=== PATIENT | female | born 1995 | race Caucasian/White ===

== ENCOUNTER 2017-03-27 19:34 | Emergency (ER) | payer BC ==
[2017-03-27] MEDS ORDERED: HYDROmorphone 1 MG/ML Syringe IVPUSH ONE ×2 (19:59→22:38)
[2017-03-27] MEDS ORDERED: Ondansetron 4 MG/2 ML SDV IVPUSH ONE (19:59)
[2017-03-27] MEDS ORDERED: Sodium Chloride 0.9% 10 ML Syringe FLUSH PRN (19:59)
[2017-03-27] MEDS ORDERED: Sodium Chloride 0.9% 500 ML IV ONE (19:59)
--- NOTE | 2017-03-27 20:13 | EDM.PDOC ---
ED HPI GENERAL MEDICAL PROBLEM - General Chief Complaint: Genitourinary Problem Stated Complaint: BACK PAIN Time Seen by Provider: 03/27/17 19:49 Source of Information: Reports: Patient, RN Notes Reviewed - History of Present Illness INITIAL COMMENTS - FREE TEXT/NARRATIVE: 22-year-old female comes in with right back discomfort. She's had some difficulty with intermittent hematuria for the past 10-12 days. She was started on antibiotics for UTI about 10 days ago but then told to stop antibiotics because there was not a true infection. She then did start having right back discomfort more severe about 2 days ago she was seen at [facility] today, had a renal CT type study this afternoon but has not heard any results. The pain is worse this evening still primarily right low back with some radiation to the right flank but not to the right abdomen. She has no current voiding symptomatology. No fever chills. However she has had some nausea vomiting this evening. Right Flank Pain Score (Numeric/FACES): 10 - Related Data Allergies Allergy/AdvReac Type Severity Reaction Status Date / Time No Known Allergies Allergy Verified 03/27/17 19:42 Home Meds: Home Meds Acetaminophen/HYDROcodone [Ferris 325-5 MG] 1 tab PO Q6H PRN #20 tablet 03/27/17 [Rx] Ondansetron [Zofran ODT] 4 mg PO Q6H PRN #10 tab.dis 03/27/17 [Rx] Sertraline HCl [Sertraline HCl] 100 mg PO DAILY 03/27/17 [History] Tramadol. 1 tab PO Q6H PRN 03/27/17 [History] Past Medical History Genitourinary History: Reports: Renal Calculus Social & Family History - Tobacco Use Smoking Status *Q: Never Smoker - Recreational Drug Use Recreational Drug Use: No ED ROS GENERAL - Review of Systems Review Of Systems: See Below Constitutional: Denies: Fever, Chills HEENT: Reports: No Symptoms Respiratory: Denies: Shortness of Breath, Pleuritic Chest Pain Cardiovascular: Denies: Chest Pain GI/Abdominal: Reports: Nausea, Vomiting. Denies: Abdominal Pain, Diarrhea Musculoskeletal: Reports: Back Pain (Right low back) Skin: Reports: No Symptoms Neurological: Reports: No Symptoms ED EXAM, RENAL/ - Physical Exam Exam: See Below General Appearance: Alert, Moderate Distress Throat/Mouth: Normal Inspection Head: No: Facial Swelling Neck: Supple Respiratory/Chest: No Respiratory Distress, Lungs Clear, Normal Breath Sounds Cardiovascular: Regular Rate, Rhythm GI/Abdominal: Soft, Non-Tender. No: Guarding Back Exam: CVA Tenderness (R), Other (Tender right low back). No: Vertebral Tenderness Extremities: Normal Inspection, Normal Range of Motion Neurological: Alert, Oriented, No Motor/Sensory Deficits Skin Exam: Warm, Dry, Normal Color Course - Vital Signs Last Recorded V/S: Last Vital Signs Temp 97.3 F 03/27/17 19:43 Pulse 86 03/27/17 19:43 Resp BP 139/99 H 03/27/17 19:43 Pulse Ox 99 03/27/17 19:43 - Orders/Labs/Meds Orders: Active Orders 24 hr Category Date Time Status Peripheral IV Care [RC] . DIRECTED Care 03/27/17 20:00 Active Sodium Chloride 0.9% [Saline Flush] Med 03/27/17 19:59 Active 10 ml FLUSH ASDIRECTED PRN Peripheral IV Insertion Adult [OM.PC] Stat Oth 03/27/17 19:59 Ordered Medication Orders Sodium Chloride (Saline Flush) 10 ml FLUSH ASDIRECTED PRN PRN Reason: Keep Vein Open Last Admin: 03/27/17 20:15 Dose: 10 ml Labs: Laboratory Tests 03/27/17 03/27/17 03/27/17 Range/Units 20:20 20:20 21:48 WBC 10.37 H (3.98-10.04) K/mm3 RBC 4.94 (3.98-5.22) M/mm3 Hgb 14.3 (11.2-15.7) gm/L Hct 40.9 (34.1-44.9) % MCV 82.8 (79.4-94.8) fl MCH 28.9 (25.6-32.2) pg MCHC 35.0 (32.2-35.5) g/dl RDW Std Deviation 39.7 (36.4-46.3) fL Plt Count 374 H (182-369) K/mm3 MPV 9.7 (9.4-12.3) fl Neut % (Auto) 61.2 (34.0-71.1) % Lymph % (Auto) 30.1 (19.3-51.7) % [place] % (Auto) 6.6 (4.7-12.5) % Eos % (Auto) 1.6 (0.7-5.8) Baso % (Auto) 0.4 (0.1-1.2) % Neut # (Auto) 6.35 H (1.56-6.13) K/mm3 Lymph # (Auto) 3.12 (1.18-3.74) K/mm3 [place] # (Auto) 0.68 H (0.24-0.36) K/mm3 Eos # (Auto) 0.17 (0.04-0.36) K/mm3 Baso # (Auto) 0.04 (0.01-0.08) K/mm3 Sodium 140 (136-145) mEq/L Potassium 3.7 (3.5-5.1) mEq/L Chloride 103 (98-107) mEq/L Carbon Dioxide 26 (21-32) mEq/L Anion Gap 14.7 (5-15) BUN 15 (7-18) mg/dL Creatinine 0.8 (0.55-1.02) mg/dL Est Cr Clr Drug Dosing 101.51 mL/min Estimated GFR (MDRD) > 60 (>60) mL/min BUN/Creatinine Ratio 18.8 H (14-18) Glucose 98 (74-106) mg/dL Calcium 9.3 (8.5-10.1) mg/dL Total Bilirubin 0.2 (0.2-1.0) mg/dL AST 23 (15-37) U/L ALT 33 (14-59) U/L Alkaline Phosphatase 76 (46-116) U/L Total Protein 7.9 (6.4-8.2) g/dl Albumin 4.0 (3.4-5.0) g/dl Globulin 3.9 gm/dL Albumin/Globulin Ratio 1.0 (1-2) Urine Color [place] H (Yellow) Urine Appearance Cloudy H (Clear) Urine pH 6.0 (5.0-8.0) Ur Specific [place] 1.025 (1.005-1.030) Urine Protein 2+ H (Negative) Urine Glucose (UA) Negative (Negative) Urine Ketones Negative (Negative) Urine Occult Blood 3+ H (Negative) Urine Nitrite Negative (Negative) Urine Bilirubin Negative (Negative) Urine Urobilinogen 0.2 (0.2-1.0) Ur Leukocyte Esterase Negative (Negative) Urine RBC >100 H (0-5) /hpf Urine WBC 0-5 (0-5) /hpf Ur Epithelial Cells 0-5 (0-5) /hpf Urine Bacteria Not seen (FEW) /hpf Urine Mucus Not seen (FEW) /hpf Meds: Medications Generic Name Dose Route Start Last Admin Trade Name Freq PRN Reason Stop Dose Admin Sodium Chloride 10 ml 03/27/17 19:59 03/27/17 20:15 Saline Flush FLUSH 10 ml ASDIRECTED PRN Administration Keep Vein Open Discontinued Medications Generic Name Dose Route Start Last Admin Trade Name Freq PRN Reason Stop Dose Admin Hydromorphone HCl 1 mg 03/27/17 19:59 03/27/17 20:16 Dilaudid IVPUSH 03/27/17 20:00 1 mg ONETIME ONE Administration Sodium Chloride 500 mls @ 999 mls/hr 03/27/17 19:59 03/27/17 20:14 Normal Saline IV 03/27/17 20:29 999 mls/hr .BOLUS ONE Administration Ondansetron HCl 4 mg 03/27/17 19:59 03/27/17 20:14 Zofran IVPUSH 03/27/17 20:00 4 mg ONETIME ONE Administration - Re-Assessments/Exams Free Text/Narrative Re-Assessment/Exam: 03/27/17 21:00. We were able to get records from [place]. Radiology report of the CT done this past afternoon does show that there was a 6 mm stone at the right UPJ with mild right-sided hydronephrosis. Report for details. This information has been shared with patient. She is feeling much better after Dilaudid 1 mg IV and Zofran 4 mg IV. Pain is down to about a 3 or 4. White blood count and chemistries are okay, she has not been able to void for us. I think we should get another look at her urine prior to discharge. I'm going to ask that she call clinic in the morning and have her provider and her nurse arrange for urology referral. She'll likely need to have this plucked out at 6 mm size. 03/27/17 22:34. UA shows hematuria, no evidence for infection. Discharge instructions as documented Departure - Departure Time of Disposition: 21:45 Disposition: Home, Self-Care 01 Condition: Fair Clinical Impression: Kidney stone on right side - Discharge Information Prescriptions: Acetaminophen/HYDROcodone [Ferris 325-5 MG] 1 tab PO Q6H PRN #20 tablet PRN Reason: Pain Ondansetron [Zofran ODT] 4 mg PO Q6H PRN #10 tab.dis PRN Reason: Nausea/Vomiting Referrals: PCP,None [Ordering Only Provider] - Forms: ED Department Discharge Additional Instructions: Tylenol for mild to moderate discomfort or hydrocodone if needed for more severe pain. You may alternate that with the tramadol previously prescribed. Zofran ODT if needed for further nausea or vomiting. Call [facility] in the morning, asked to speak to Anh Griffith's nurse and ask to have them help you get a referral to a Urologist as soon as possible this week, preferably in the next day or 2. Return to ED if symptoms worsening in any way. - My Orders Last 24 Hours: My Active Orders 03/27/17 19:59 Sodium Chloride 0.9% [Saline Flush] 10 ml FLUSH ASDIRECTED PRN Peripheral IV Insertion Adult [OM.PC] Stat 03/27/17 20:00 Peripheral IV Care [RC] . DIRECTED - Assessment/Plan Last 24 Hours: My Active Orders 03/27/17 19:59 Sodium Chloride 0.9% [Saline Flush] 10 ml FLUSH ASDIRECTED PRN Peripheral IV Insertion Adult [OM.PC] Stat 03/27/17 20:00 Peripheral IV Care [RC] . DIRECTED
== END 2017-03-27 23:05 | disposition home or self-care (01) ==
LOC: JD.ED 19:34
DX: N13.2 Hydronephrosis with renal and ureteral calculous obstruction (principal); Z79.899 Other long term (current) drug therapy
CPT/HCPCS: 36415; 80053; 81001; 85025; 96361; 96374; 96375; 96376; 99284; J1170; J2405; J7040; J7050

== ENCOUNTER 2020-08-12 12:56 | Emergency (ER) | payer BC ==
[2020-08-12] MEDS ORDERED: Sodium Chloride 0.9% 10 ML Syringe FLUSH PRN (13:28)
[2020-08-12] MEDS ORDERED: Hyoscyamine 0.125 MG Tab.SL SL ONE (13:36)
--- NOTE | 2020-08-12 14:01 | EDM.PDOC ---
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 Patient reports she was experiencing nausea, diaphoresis, and dizziness when she first felt this pain but since then no longer is experiencing these symptoms. She now feels like she is bloated all over and is experiencing tenderness upon palpation and a sharp epigastric pain with mild RLQ tenderness. She admits her last menstrual cycle was July 01. Upper Abdomen Pain Score (Numeric/FACES): 7 - Related Data Allergies Allergy/AdvReac Type Severity Reaction Status Date / Time No Known Allergies Allergy Verified 08/12/20 13:06 Home Meds: Home Meds DULoxetine HCl [Cymbalta] 60 mg PO DAILY 08/12/20 [History] Hyoscyamine [Levsin] 0.125 mg PO Q4HR PRN #10 tab 08/12/20 [Rx] Pnv No.95/Ferrous Fum/Folic AC [ Cap[place]] 1 each PO DAILY 08/12/20 [History] Past Medical History Genitourinary History: Reports: Renal Calculus Psychiatric History: Reports: Anxiety Endocrine/Metabolic History: Reports: Obesity/BMI 30+ - Past Surgical History HEENT Surgical History: Reports: Oral Surgery Social & Family History - Tobacco Use Tobacco Use Status *Q: Never Tobacco User - Caffeine Use Caffeine Use: Reports: Coffee - Recreational Drug Use Recreational Drug Use: No ED ROS GENERAL - Review of Systems Review Of Systems: See Below Constitutional: Reports: Diaphoresis HEENT: Reports: No Symptoms Respiratory: Reports: No Symptoms Cardiovascular: Reports: No Symptoms Endocrine: Reports: No Symptoms GI/Abdominal: Reports: Abdominal Pain, Diarrhea, Nausea, Other (Bloating) : Reports: No Symptoms Musculoskeletal: Reports: No Symptoms Skin: Reports: Diaphoresis Neurological: Reports: Dizziness Psychiatric: Reports: No Symptoms Hematologic/Lymphatic: Reports: No Symptoms Immunologic: Reports: No Symptoms ED EXAM, GI/ABD - Physical Exam Exam: See Below Exam Limited By: No Limitations General Appearance: Alert, WD/WN, No Apparent Distress Respiratory/Chest: No Respiratory Distress, Lungs Clear, Normal Breath Sounds, No Accessory Muscle Use, Chest Non-Tender Cardiovascular: Normal Peripheral Pulses, Regular Rate, Rhythm, No Edema, No Gallop, No JVD, No Murmur, No Rub GI/Abdominal Exam: Normal Bowel Sounds, Soft, Tender Neurological: Alert, Oriented Psychiatric: Normal Affect, Normal Mood Skin Exam: Warm, Dry, Intact Departure - Departure Disposition: Home, Self-Care 01 Clinical Impression: Biliary colic - Discharge Information Prescriptions: Hyoscyamine [Levsin] 0.125 mg PO Q4HR PRN #10 tab PRN Reason: Abdominal Pain Instructions: Biliary Colic, Adult Referrals: Anh Griffith PA-C [Primary Care Provider] - Forms: ED Department Discharge Additional Instructions: You were seen in the emergency department today for evaluation of lower abdominal pain. Blood work and urinalysis were completed and found to be normal. While in the ER, you received a dose of Levsin which treats spasms of the gallbladder. This did resolve your pain. As we discussed, you are likely suffering from biliary colic. Recommend scheduling a follow-up appointment with your primary care provider at her next available visit to discuss ultrasound of your gallbladder as well as possible HIDA scan if needed. If the pain should return, you been prescribed Levsin. If you take this and the pain does not resolve or you experience any new or worsening symptoms of concern, you should return to the emergency department for reevaluation. Sepsis Event Note (ED) - Evaluation Sepsis Screening Result: No Definite Risk <Corrina Carvajal - Last Filed: 08/12/20 15:24> Course - Vital Signs Last Recorded V/S: Last Vital Signs Temp 97.2 F 08/12/20 13:03 Pulse 86 08/12/20 13:03 Resp 16 08/12/20 13:03 BP 147/93 H 08/12/20 13:03 Pulse Ox 100 08/12/20 13:03 - Orders/Labs/Meds Orders: Active Orders 24 hr Category Date Time Status Peripheral IV Care [RC] . DIRECTED Care 08/12/20 13:28 Active Sodium Chloride 0.9% [Saline Flush] Med 08/12/20 13:28 Active 10 ml FLUSH ASDIRECTED PRN Peripheral IV Insertion Adult [OM.PC] Stat Oth 08/12/20 13:28 Ordered Medication Orders Sodium Chloride (Sodium Chloride 0.9% 10 Ml Syringe) 10 ml FLUSH ASDIRECTED PRN PRN Reason: Keep Vein Open Labs: Laboratory Tests 08/12/20 08/12/20 08/12/20 Range/Units 13:15 13:15 14:27 WBC 9.60 (3.98-10.04) K/mm3 RBC 4.81 (3.98-5.22) M/mm3 Hgb 13.7 (11.2-15.7) gm/dl Hct 41.4 (34.1-44.9) % MCV 86.1 D (79.4-94.8) fl MCH 28.5 (25.6-32.2) pg MCHC 33.1 (32.2-35.5) g/dl RDW Std Deviation 41.8 (36.4-46.3) fL Plt Count 337 (182-369) K/mm3 MPV 9.5 (9.4-12.3) fl Neut % (Auto) 74.0 H (34.0-71.1) % Lymph % (Auto) 19.0 L (19.3-51.7) % [place] % (Auto) 5.2 (4.7-12.5) % Eos % (Auto) 1.4 (0.7-5.8) Baso % (Auto) 0.3 (0.1-1.2) % Neut # (Auto) 7.11 H (1.56-6.13) K/mm3 Lymph # (Auto) 1.82 (1.18-3.74) K/mm3 [place] # (Auto) 0.50 H (0.24-0.36) K/mm3 Eos # (Auto) 0.13 (0.04-0.36) K/mm3 Baso # (Auto) 0.03 (0.01-0.08) K/mm3 Sodium (136-145) mEq/L Potassium (3.5-5.1) mEq/L Chloride (98-107) mEq/L Carbon Dioxide (21-32) mEq/L Anion Gap (5-15) BUN (7-18) mg/dL Creatinine (0.55-1.02) mg/dL Est Cr Clr Drug Dosing mL/min Estimated GFR (MDRD) (>60) mL/min BUN/Creatinine Ratio (14-18) Glucose (74-106) mg/dL Calcium (8.5-10.1) mg/dL Total Bilirubin (0.2-1.0) mg/dL AST (15-37) U/L ALT (14-59) U/L Alkaline Phosphatase (46-116) U/L C-Reactive Protein (<1.0) mg/dL Total Protein (6.4-8.2) g/dl Albumin (3.4-5.0) g/dl Globulin gm/dL Albumin/Globulin Ratio (1-2) Lipase (73-393) U/L Urine Color Yellow (Yellow) Urine Appearance Clear (Clear) Urine pH 6.0 (5.0-8.0) Ur Specific [place] > or = 1.030 (1.005-1.030) Urine Protein Negative (Negative) Urine Glucose (UA) Negative (Negative) Urine Ketones Negative (Negative) Urine Occult Blood Trace-intact H (Negative) Urine Nitrite Negative (Negative) Urine Bilirubin Negative (Negative) Urine Urobilinogen 0.2 (0.2-1.0) Ur Leukocyte Esterase Negative (Negative) Urine RBC 5-10 H (0-5) /hpf Urine WBC 0-5 (0-5) /hpf Ur Squamous Epith Cells 0-5 (0-5) /hpf Urine Bacteria Few (FEW) /hpf Urine Mucus Few (FEW) /hpf Urine HCG, Qual Negative (NEGATIVE) 08/12/20 Range/Units 14:27 WBC (3.98-10.04) K/mm3 RBC (3.98-5.22) M/mm3 Hgb (11.2-15.7) gm/dl Hct (34.1-44.9) % MCV (79.4-94.8) fl MCH (25.6-32.2) pg MCHC (32.2-35.5) g/dl RDW Std Deviation (36.4-46.3) fL Plt Count (182-369) K/mm3 MPV (9.4-12.3) fl Neut % (Auto) (34.0-71.1) % Lymph % (Auto) (19.3-51.7) % [place] % (Auto) (4.7-12.5) % Eos % (Auto) (0.7-5.8) Baso % (Auto) (0.1-1.2) % Neut # (Auto) (1.56-6.13) K/mm3 Lymph # (Auto) (1.18-3.74) K/mm3 [place] # (Auto) (0.24-0.36) K/mm3 Eos # (Auto) (0.04-0.36) K/mm3 Baso # (Auto) (0.01-0.08) K/mm3 Sodium 140 (136-145) mEq/L Potassium 4.2 (3.5-5.1) mEq/L Chloride 103 (98-107) mEq/L Carbon Dioxide 29 (21-32) mEq/L Anion Gap 12.2 (5-15) BUN 11 (7-18) mg/dL Creatinine 0.7 (0.55-1.02) mg/dL Est Cr Clr Drug Dosing 117.39 mL/min Estimated GFR (MDRD) > 60 (>60) mL/min BUN/Creatinine Ratio 15.7 (14-18) Glucose 104 (74-106) mg/dL Calcium 9.2 (8.5-10.1) mg/dL Total Bilirubin 0.2 (0.2-1.0) mg/dL AST 17 (15-37) U/L ALT 32 (14-59) U/L Alkaline Phosphatase 65 (46-116) U/L C-Reactive Protein 1.6 H* (<1.0) mg/dL Total Protein 7.5 (6.4-8.2) g/dl Albumin 3.6 (3.4-5.0) g/dl Globulin 3.9 gm/dL Albumin/Globulin Ratio 0.9 L (1-2) Lipase 134 (73-393) U/L Urine Color (Yellow) Urine Appearance (Clear) Urine pH (5.0-8.0) Ur Specific [place] (1.005-1.030) Urine Protein (Negative) Urine Glucose (UA) (Negative) Urine Ketones (Negative) Urine Occult Blood (Negative) Urine Nitrite (Negative) Urine Bilirubin (Negative) Urine Urobilinogen (0.2-1.0) Ur Leukocyte Esterase (Negative) Urine RBC (0-5) /hpf Urine WBC (0-5) /hpf Ur Squamous Epith Cells (0-5) /hpf Urine Bacteria (FEW) /hpf Urine Mucus (FEW) /hpf Urine HCG, Qual (NEGATIVE) Meds: Medications Generic Name Dose Route Start Last Admin Trade Name Freq PRN Reason Stop Dose Admin Sodium Chloride 10 ml 08/12/20 13:28 Sodium Chloride 0.9% 10 Ml Syringe FLUSH ASDIRECTED PRN Keep Vein Open Discontinued Medications Generic Name Dose Route Start Last Admin Trade Name Freq PRN Reason Stop Dose Admin Hyoscyamine 0.25 mg 08/12/20 13:36 08/12/20 14:26 Hyoscyamine 0.125 Mg Tab.Sl SL 08/12/20 13:37 0.25 mg ONETIME ONE Administration - Re-Assessments/Exams Free Text/Narrative Re-Assessment/Exam: I examined the patient and agree with the HPI and assessment as document by Emani, CRYPTOLOGIST student. At the time of my exam, however the right lower quadrant abdominal pain had resolved. She states the pain has improved overall. She does have some tenderness in the epigastric region as well as mild right upper quadrant. Onset of pain was approximately an hour after eating some mac & cheese. Denies any history of gallbladder dysfunction. I have ordered CBC, CMP, CRP, lipase, urinalysis, and urine qualitative hCG. I will give her Levsin 0.25 mg sublingual to see if this alleviates the pain. 08/12/20 15:21 Hematology is grossly unremarkable. hCG is negative. Lipase is normal. Her pain has resolved with the Levsin. She has no abdominal pain at this time. Discussed that while the exact cause of the pain is unknown, is likely related to biliary colic. It has been less than 6 hours since she ate, therefore ultrasound if obtained now will be suboptimal. I will discharge her home with prescription for Levsin as needed and instructions to follow-up with her primary care provider to arrange for outpatient gallbladder ultrasound as well as HIDA scan as needed. Discussed return precautions. She is in agreement with this plan. Discharge instructions as documented. Departure - Departure Time of Disposition: 15:21 Condition: Good - Discharge Information *PRESCRIPTION DRUG MONITORING PROGRAM REVIEWED*: No *COPY OF PRESCRIPTION DRUG MONITORING REPORT IN PATIENT STACIE: No Sepsis Event Note (ED) - Focused Exam Vital Signs: Vital Signs Temp Pulse Resp BP Pulse Ox 08/12/20 13:03 97.2 F 86 16 147/93 H 100 - My Orders Last 24 Hours: My Active Orders 08/12/20 13:28 Peripheral IV Care [RC] . DIRECTED Sodium Chloride 0.9% [Saline Flush] 10 ml FLUSH ASDIRECTED PRN Peripheral IV Insertion Adult [OM.PC] Stat - Assessment/Plan Last 24 Hours: My Active Orders 08/12/20 13:28 Peripheral IV Care [RC] . DIRECTED Sodium Chloride 0.9% [Saline Flush] 10 ml FLUSH ASDIRECTED PRN Peripheral IV Insertion Adult [OM.PC] Stat
== END 2020-08-12 15:35 | disposition home or self-care (01) ==
LOC: JD.ED 12:56
DX: K80.50 Calculus of bile duct without cholangitis or cholecystitis without obstruction (principal); E66.9 Obesity, unspecified; Z68.30 Body mass index [BMI] 30.0-30.9, adult
CPT/HCPCS: 36415; 80053; 81001; 81025; 83690; 85025; 86140; 99284; A9270; 99283

== ENCOUNTER 2022-09-28 07:07 | Inpatient (IN) | payer BC ==
[~2022-09-28 07:07] MED LIST: Ropivacaine 0.2% PF 2 MG/ML 20 ML SDV ONE
[2022-09-28] MEDS ORDERED: Sodium Chloride 0.9% 10 ML Syringe FLUSH PRN (07:08)
[2022-09-28] MEDS ORDERED: Nalbuphine 10 MG/0.5 ML Syringe IVPUSH PRN (07:08)
[2022-09-28] MEDS ORDERED: Ondansetron 4 MG/2 ML SDV IVPUSH PRN (07:08)
[2022-09-28] MEDS ORDERED: Oxytocin/Lactated Ringers 10 UNIT/1,000 ML BAG IV SCH ×2 (07:15)
[2022-09-28 07:59] LABS: HEMATOCRIT 39.8 % (34.1-44.9); HEMOGLOBIN 13.5 gm/dl (11.2-15.7); MEAN CORPUSCULAR HGB CONC 33.9 g/dl (32.2-35.5); MEAN CORPUSCULAR VOLUME 82.6 fl (79.4-94.8); MEAN PLATELET VOLUME 11.1 fl (9.4-12.3); PLATELET COUNT,PLT 315 K/mm3 (182-369); RED BLOOD CELL COUNT 4.82 M/mm3 (3.98-5.22); WHITE BLOOD CELL COUNT,WBC 14.08 K/mm3 (3.98-10.04)
[2022-09-28] MEDS ORDERED: Sodium Chloride 0.9% 10 ML Syringe FLUSH SCH (09:00)
[2022-09-28] MEDS: Lactated Ringers 1,000 ML IV SCH ×2 (09:02→14:51)
[2022-09-28] MEDS ORDERED: Bupivacaine/fentaNYL/NS 100 ML Bag EPIDUR PRN (09:26)
[2022-09-28] MEDS ORDERED: ePHEDrine 50 MG/ML SDV IVPUSH PRN (09:26)
[2022-09-28] MEDS ORDERED: fentaNYL 100 MCG/2 ML SDV EPIDUR PRN (09:26)
[2022-09-28] MEDS ORDERED: diphenhydrAMINE 50 MG/ML SDV IVPUSH PRN (09:26)
[2022-09-28] MEDS ORDERED: Docusate Sodium 100 MG Cap PO PRN (20:32)
[2022-09-28] MEDS ORDERED: Ibuprofen 600 MG Tab PO PRN (20:32)
[2022-09-28] MEDS ORDERED: Acetaminophen 325 MG Tab PO PRN (20:32)
[2022-09-28] MEDS ORDERED: Witch Hazel Medicated Pads 40/Jar TOP PRN (20:32)
[2022-09-28] MEDS ORDERED: Benzocaine/Menthol 20%-0.5% Spray 78 GM Cannister TOP PRN (20:32)
[2022-09-29] MEDS: DULoxetine 30 MG Cap PO SCH (14:07)
[2022-09-30] MEDS ORDERED: Furosemide 20 MG Tab PO SCH (09:00)
[2022-09-30] MEDS: DULoxetine 30 MG Cap PO SCH (09:57)
== END 2022-09-30 11:30 | disposition home or self-care (01) | DRG 560 ==
LOC: JD.OB 07:07
PROVIDERS: ADMIT Obstetrics & Gynecology; ATTEND Obstetrics & Gynecology
PROC: 3E0R3BZ Introduction of Anesthetic Agent into Spinal Canal, Percutaneous Approach (ICD-10-PCS; principal; 2022-09-28)
PROC: 3E033VJ Introduction of Other Hormone into Peripheral Vein, Percutaneous Approach (ICD-10-PCS; principal; 2022-09-28)
PROC: 00HU33Z Insertion of Infusion Device into Spinal Canal, Percutaneous Approach (ICD-10-PCS; principal; 2022-09-28)
PROC: 10E0XZZ Delivery of Products of Conception, External Approach (ICD-10-PCS; principal; 2022-09-28)
PROC: 10907ZC Drainage of Amniotic Fluid, Therapeutic from Products of Conception, Via Natural or Artificial Opening (ICD-10-PCS; principal; 2022-09-28)
PROC: 0KQM0ZZ Repair Perineum Muscle, Open Approach (ICD-10-PCS; principal; 2022-09-28)
DX: O99.214 Obesity complicating childbirth (principal); O77.0 Labor and delivery complicated by meconium in amniotic fluid; O70.1 Second degree perineal laceration during delivery; O43.123 Velamentous insertion of umbilical cord, third trimester; Z37.0 Single live birth; Z3A.39 39 weeks gestation of pregnancy
CPT/HCPCS: 36415; 51702; 59025; 59409; 85027; 86592; 86850; 86900; 86901; A9270-GY; J2300; J2405; J2590; J2795; J3490; J7120

== ENCOUNTER 2024-03-27 19:42 | Emergency (ER) | payer BC ==
[2024-03-27] MEDS ORDERED: Sodium Chloride 0.9% 10 ML Syringe FLUSH PRN (19:51)
[2024-03-27] MEDS: Sodium Chloride 0.9% 1,000 ML IV ONE ×2 (20:01→21:55)
[2024-03-27] MEDS: Ondansetron 4 MG/2 ML SDV IVPUSH ONE (20:01)
[2024-03-27 20:04] LABS: BASOPHILS PERCENT AUTO 0.1 % (0.0-1.0); EOSINOPHILS ABSOLUTE AUTO 0.1 K/mm3 (0.0-0.4); EOSINOPHILS PERCENT AUTO 0.4 % (0.0-6.0); HEMATOCRIT 41.7 % (37.0-47.0); HEMOGLOBIN 14.3 gm/dl (12.0-16.0); IMMATURE GRAN ABSOLUTE AUTO 0.05 K/mm3 (0.00-0.05); IMMATURE GRAN PERCENT AUTO 0.4 % (0.0-0.4); LYMPHOCYTES ABSOLUTE AUTO 0.6 K/mm3 (1.0-4.8); LYMPHOCYTES PERCENT AUTO 4.7 % (24.0-44.0); MEAN CORPUSCULAR HEMOGLOBIN 27.3 pg (28.0-32.0); MEAN CORPUSCULAR HGB CONC 34.3 g/dl (32.0-36.0); MEAN CORPUSCULAR VOLUME 79.6 fl (83.0-99.0); MEAN PLATELET VOLUME 9.4 fl (9.4-12.3); MONOCYTES ABSOLUTE AUTO 0.5 K/mm3 (0.0-0.8); MONOCYTES PERCENT AUTO 3.5 % (0.0-8.0); NEUTROPHILS ABSOLUTE AUTO 11.7 K/mm3 (1.8-7.7); NEUTROPHILS PERCENT AUTO 90.9 % (41.0-71.0); PLATELET COUNT,PLT 332 K/mm3 (150-400); RED BLOOD CELL COUNT 5.24 M/mm3 (4.10-5.30); WHITE BLOOD CELL COUNT,WBC 12.84 K/mm3 (3.9-11.3)
[2024-03-27 20:25] LABS: A/G RATIO 0.6 (1-2); ALBUMIN 2.9 g/dl (3.4-5.0); ANION GAP 17.8 (5-15); BILIRUBIN TOTAL 0.4 mg/dL (0.2-1.0); CREATININE 0.6 mg/dL (0.55-1.02); EST CRCL DRUG DOSING (CG) 127.18 mL/min; POTASSIUM,K 3.8 mEq/L (3.5-5.1); PROTEIN TOTAL,TP 7.6 g/dl (6.4-8.2)
[2024-03-27 20:37] LABS: APPEARANCE,URINE SLT CLOUDY (Clear); BILIRUBIN,URINE 1+ (Negative); COLOR,URINE DARK YELLOW (Yellow); GLUCOSE,URINE NEGATIVE (Negative); KETONES,URINE 4+ (Negative); LEUKOCYTE ESTERASE,URINE TRACE (Negative); NITRITE,URINE NEGATIVE (Negative); OCCULT BLOOD,URINE 2+ (Negative); PH,URINE 6.5 (5.0-8.0); PROTEIN,URINE 2+ (Negative)
[2024-03-27 20:46] LABS: BACTERIA,URINE FEW /hpf (FEW); EPITHELIAL CELLS,URINE 0-5 /hpf (0-5); MUCUS,URINE FEW /hpf (FEW); WBC,URINE 0-5 /hpf (0-5)
[2024-03-27 20:47] LABS: CORONAVIRUS COVID-19 NAA NEGATIVE (NEGATIVE); INFLUENZA A NAA NEGATIVE (NEGATIVE); RESPIRATORY SYNCYTIAL VIR NAA NEGATIVE (NEGATIVE)
[2024-03-27 20:52] LABS: SLIDE REVIEW ABNORMAL SMEAR
[2024-03-27] MEDS: Metoclopramide 5 MG Tab PO ONE (21:20)
== END 2024-03-27 23:58 | disposition home or self-care (01) ==
LOC: JD.ED 19:42
DX: O99.891 Other specified diseases and conditions complicating pregnancy (principal); R11.0 Nausea; R10.13 Epigastric pain; Z3A.22 22 weeks gestation of pregnancy; Z79.899 Other long term (current) drug therapy
CPT/HCPCS: 0241U; 36415; 76700; 80053; 81001; 85025; 87086; 96361; 96374; 99284; A9270; J2405; J7030

== ENCOUNTER 2024-07-11 19:54 | Inpatient (IN) | payer BC ==
[2024-07-11 20:56] LABS: CREATININE,URINE RAND 284.7 mg/dL (30.0-125.0); PROTEIN CREATININE RATIO,URINE 160.5 mg/g (0-149); PROTEIN,URINE RANDOM 45.7 mg/dL (0.0-11.8)
[2024-07-11 21:10] LABS: BASOPHILS PERCENT AUTO 0.2 % (0.0-1.0); EOSINOPHILS ABSOLUTE AUTO 0.1 K/mm3 (0.0-0.4); EOSINOPHILS PERCENT AUTO 0.9 % (0.0-6.0); HEMATOCRIT 38.2 % (37.0-47.0); HEMOGLOBIN 12.8 gm/dl (12.0-16.0); IMMATURE GRAN ABSOLUTE AUTO 0.04 K/mm3 (0.00-0.05); IMMATURE GRAN PERCENT AUTO 0.3 % (0.0-0.4); LYMPHOCYTES ABSOLUTE AUTO 2.9 K/mm3 (1.0-4.8); LYMPHOCYTES PERCENT AUTO 24.5 % (24.0-44.0); MEAN CORPUSCULAR HEMOGLOBIN 27.4 pg (28.0-32.0); MEAN CORPUSCULAR HGB CONC 33.5 g/dl (32.0-36.0); MEAN CORPUSCULAR VOLUME 81.8 fl (83.0-99.0); MEAN PLATELET VOLUME 10.2 fl (9.4-12.3); MONOCYTES ABSOLUTE AUTO 0.8 K/mm3 (0.0-0.8); NEUTROPHILS ABSOLUTE AUTO 7.8 K/mm3 (1.8-7.7); NEUTROPHILS PERCENT AUTO 67.1 % (41.0-71.0); PLATELET COUNT,PLT 309 K/mm3 (150-400); RED BLOOD CELL COUNT 4.67 M/mm3 (4.10-5.30); WHITE BLOOD CELL COUNT,WBC 11.65 K/mm3 (3.9-11.3)
[2024-07-11 21:33] LABS: CREATININE 0.8 mg/dL (0.55-1.02); EST CRCL DRUG DOSING (CG) 95.38 mL/min; URIC ACID 4.6 mg/dL (2.6-6.0)
[2024-07-11] MEDS: diphenhydrAMINE 50 MG/ML SDV IVPUSH ONE (22:17)
[2024-07-11] MEDS: Sodium Chloride 0.9% 10 ML Syringe FLUSH PRN (22:19)
[2024-07-11] MEDS: Sodium Chloride 0.9% 250 ML IV ONE (22:42)
[2024-07-11] MEDS: Metoclopramide 10 MG/2 ML SDV IV ONE (22:42)
[2024-07-12] MEDS ORDERED: Nalbuphine 10 MG/1 ML Vial IVPUSH PRN (00:14)
[2024-07-12] MEDS ORDERED: Lidocaine 1% 50 ML MDV INJECT PRN (00:14)
[2024-07-12] MEDS ORDERED: Ondansetron 4 MG/2 ML SDV IVPUSH PRN (00:14)
[2024-07-12] MEDS ORDERED: Calcium Carbonate 500 MG Tab.Chew PO PRN (00:14)
[2024-07-12] MEDS: Lactated Ringers 1,000 ML IV SCH (00:50)
[2024-07-12] MEDS: Oxytocin/0.9 % Sodium Chloride 30 UNIT/500 ML BAG IV SCH (00:54)
[2024-07-12] MEDS ORDERED: ePHEDrine 50 MG/ML SDV IVPUSH PRN (04:05)
[2024-07-12] MEDS ORDERED: diphenhydrAMINE 50 MG/ML SDV IVPUSH PRN (04:05)
[2024-07-12] MEDS: Bupivacaine/fentaNYL/NS 100 ML Bag EPIDUR PRN (04:10)
[2024-07-12] MEDS ORDERED: Acetaminophen 325 MG Tab PO PRN (13:00)
[2024-07-12] MEDS ORDERED: Docusate Sodium 100 MG Cap PO PRN (13:00)
[2024-07-12] MEDS: Ibuprofen 600 MG Tab PO SCH (13:26)
[2024-07-12] MEDS: Benzocaine/Menthol 20%-0.5% Spray 78 GM Cannister TOP PRN (13:27)
[2024-07-12] MEDS: Witch Hazel Medicated Pads 40/Jar TOP PRN (13:27)
== END 2024-07-13 13:40 | disposition home or self-care (01) | DRG 560 ==
LOC: JD.OBCHECK 19:54 → JD.OB 20:09 → JD.OBCHECK 07-12 00:05 → JD.OB 07-12 00:51 → OBSVTOIN 07-12 09:30
PROVIDERS: ADMIT Obstetrics & Gynecology; ATTEND Obstetrics & Gynecology
PROC: 10E0XZZ Delivery of Products of Conception, External Approach (ICD-10-PCS; principal; 2024-07-12)
PROC: 10907ZC Drainage of Amniotic Fluid, Therapeutic from Products of Conception, Via Natural or Artificial Opening (ICD-10-PCS; 2024-07-12)
PROC: 3E033VJ Introduction of Other Hormone into Peripheral Vein, Percutaneous Approach (ICD-10-PCS; 2024-07-12)
PROC: 3E0R3BZ Introduction of Anesthetic Agent into Spinal Canal, Percutaneous Approach (ICD-10-PCS; 2024-07-12)
PROC: 00HU33Z Insertion of Infusion Device into Spinal Canal, Percutaneous Approach (ICD-10-PCS; 2024-07-12)
DX: O13.4 Gestational [pregnancy-induced] hypertension without significant proteinuria, complicating childbirth (principal); Z37.0 Single live birth; Z3A.37 37 weeks gestation of pregnancy
CPT/HCPCS: 36415; 51702; 59025; 59409; 82565; 82570; 83615; 84156; 84450; 84460; 84520; 84550; 85025; 86592; 86850; 86900; 86901; A9270-GY; J1200; J2765; J3490; J7120; J7999

== ENCOUNTER 2024-11-29 15:15 | Emergency (ER) | payer BC ==
[2024-11-29] MEDS: Orphenadrine 100 MG Tab.ER PO STA (18:09)
== END 2024-11-29 18:09 | disposition home or self-care (01) ==
LOC: JD.ED 15:15
DX: M62.831 Muscle spasm of calf (principal); Z79.899 Other long term (current) drug therapy; Z86.16 Personal history of COVID-19
CPT/HCPCS: 93971; 99283; A9270